=== PATIENT | female | born 1995 | race Caucasian/White ===

== ENCOUNTER 2018-11-05 10:31 | Emergency (ER) | payer SELFPAY ==
--- NOTE | 2018-11-05 11:47 | EKG ---
Test Date: 2018-11-05 Test Time: 11:23:06 [employer]: [place] MEASUREMENT RESULTS: Intervals: Rate: 60 [place]: 138 QRSD: 86 QT: 394 QTc: 394 [place]: P: 28 [place]: 138 QRS: 97 T: 77 INTERPRETIVE STATEMENTS: Normal sinus rhythm with sinus arrhythmia Rightward axis Borderline ECG No previous ECG available for comparison Electronically Signed On 11-05-18 11:46:47 CDT by Kendall Rondon
[2018-11-05 12:05] LABS: Absolute Lymphocytes (CBC) 2.9 K/uL (0.7-4.9); Absolute Monocytes 0.6 K/uL (0.1-1.3); Absolute Neutrophil 5.6 K/uL (1.8-8.0); Basophils % 0.4 % (0-1.3); Eosinophils % 0.9 % (0-4.4); Hematocrit 43.9 % (36.0-45.0); Lymphocytes % 31.3 % (15.3-44.8); MPV 10.4 fL (7.6-11.3); Monocytes % 6.2 % (3.3-12.3)
[2018-11-05 12:36] LABS: ALT/SGPT 15 U/L (12-78); AST/SGOT 11 U/L (15-37); Albumin 4.3 g/dL (3.4-5.0); Alkaline Phosphatase 42 U/L (45-117); BUN Blood Urea Nitrogen 15 mg/dL (7-18); Bicarbonate 26 mmol/L (21-32); Bilirubin Direct < 0.1 mg/dL (0-0.2); Bilirubin Total 0.2 mg/dL (0.2-1.0); Glucose Level 86 mg/dL (74-106); Potassium 3.9 mmol/L (3.5-5.1); Protein, Total 8.4 g/dL (6.4-8.2); Sodium Level 141 mmol/L (136-145)
[2018-11-05 13:07] LABS: Barbiturates NEGATIVE (NEGATIVE); Benzodiazepines NEGATIVE (NEGATIVE); Cocaine NEGATIVE (NEGATIVE); METHAMPHETAM NEGATIVE (NEGATIVE); Methadone NEGATIVE (NEGATIVE); Opiates NEGATIVE (NEGATIVE); Phencyclidine NEGATIVE (NEGATIVE); THC Cannibis POSITIVE (NEGATIVE)
[2018-11-05 13:26] LABS: Urine Blood NEGATIVE (NEG); Urine Glucose NEGATIVE (NEG); Urine Protein NEGATIVE (NEG); Urine Specific Gravity 1.025 (1.005-1.030)
--- NOTE | 2018-11-06 16:36 | ER ---
Nurse's Notes [facility] Name: Nancy Crowell Age: 23 yrs Sex: Female : 1995 Arrival Date: 11/05/2018 Time: 10:34 Bed 16 Private MD: None, None Diagnosis: Suicidal ideations;Suicide attempt Presentation: 11/05 10:36 Presenting complaint: Patient states: "I took a bunch of pills on Sunday to try to aj1 kill myself, I'm severely depressed, I have anxiety." Patient's mother reports that she was threatening to kill herself earlier. Transition of care: patient was not received from another setting of care. Onset of symptoms was November 05, 2018. Risk Assessment: Do you want to hurt yourself or someone else? Patient reports desire/thoughts of hurting themselves or someone else. Provider notified. Initial Sepsis Screen: Does the patient meet any 2 criteria? No. Patient's initial sepsis screen is negative. Does the patient have a suspected source of infection? No. Patient's initial sepsis screen is negative. Care prior to arrival: None. 10:36 Method Of Arrival: Ambulatory aj 10:36 Acuity: MELO 2 aj1 Triage Assessment: 10:38 General: Appears in no apparent distress. uncomfortable, Behavior is calm, cooperative, aj1 appropriate for age. Pain: Denies pain. Neuro: Level of Consciousness is awake, alert, obeys commands. Cardiovascular: Patient's skin is warm and dry. Respiratory: Airway is patent Respiratory effort is even, unlabored, Respiratory pattern is regular, symmetrical. 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 - Social history:: Smoking status: Patient/guardian denies using tobacco, Patient uses street drugs, marijuana. - Ebola Screening: : Patient denies travel to an Ebola-affected area in the 21 days before illness onset. Screenin:00 Abuse screen: Denies threats or abuse. Nutritional screening: No deficits noted. rb1 Tuberculosis screening: No symptoms or risk factors identified. Fall Risk None identified. Assessment: 10:40 Reassessment: Dr. Duron is currently in the room speaking with the pt. and her mother. rb1 11:00 General: Appears comfortable, Behavior is anxious, Pt. told her mother that she didn't rb1 want to be here.. 11:00 Neuro: Level of Consciousness is awake, alert, obeys commands, Oriented to person, rb1 place, time, situation. Cardiovascular: Capillary refill < 3 seconds is brisk in bilateral fingers. Respiratory: Airway is patent Respiratory effort is even, unlabored, Respiratory pattern is regular, symmetrical. Derm: Skin is pink, warm \\T\\ dry. Musculoskeletal: Range of motion: intact in all extremities. 11:00 General: Pt. denies having a plan to harm herself now. Pt. stated, "I'm not going to do rb1 anything while I'm here. I have just been dealing with stuff clear back to my childhood.". Pain: Denies pain. GI: No signs and/or symptoms were reported involving the gastrointestinal system. : No signs and/or symptoms were reported regarding the genitourinary system. Derm: Healing superficial cut noted to the left wrist. 12:00 Reassessment: Patient appears in no apparent distress at this time. No changes from rb1 previously documented assessment. Mother at bedside. 13:00 Reassessment: Patient appears in no apparent distress at this time. Patient and/or rb1 family updated on plan of care and expected duration. Pain level reassessed. Patient is alert, oriented x 3, equal unlabored respirations, skin warm/dry/pink. Patient denies pain at this time. 14:00 Reassessment: Patient appears in no apparent distress at this time. No changes from rb1 previously documented assessment. Pt. was asked if she would voluntarily be transferred to a mental health facility and she agreed to be transferred. 15:00 Reassessment: Patient appears in no apparent distress at this time. Patient and/or rb1 family updated on plan of care and expected duration. Pain level reassessed. Patient is alert, oriented x 3, equal unlabored respirations, skin warm/dry/pink. Mother remains at bedside. Patient denies pain at this time. 16:00 Reassessment: Patient appears in no apparent distress at this time. No changes from rb1 previously documented assessment. 16:17 Reassessment: [facility] at bedside speaking with the pt. rb1 17:00 Reassessment: Patient appears in no apparent distress at this time. Patient and/or rb1 family updated on plan of care and expected duration. Pain level reassessed. Patient is alert, oriented x 3, equal unlabored respirations, skin warm/dry/pink. Patient denies pain at this time. 18:00 Reassessment: Patient appears in no apparent distress at this time. No changes from rb1 previously documented assessment. 18:20 Reassessment: Did a nurse to nurse with Elzbieta from [facility]. Information rb1 from the [facility] was given. All questions asked and answered. Elzbieta will call back if she has further questions. 19:20 General: Appears comfortable, Behavior is calm, cooperative, appropriate for age. Pain: ea Denies pain. Neuro: Level of Consciousness is awake, alert, obeys commands, Oriented to person, place, time, situation. Cardiovascular: Patient's skin is warm and dry. Respiratory: Airway is patent Respiratory effort is even, unlabored, Respiratory pattern is regular, symmetrical. Derm: Skin is pink, warm \\T\\ dry. 11/06 07:00 Reassessment: Pt's care will be continued by me at this time. . aa5 07:15 Reassessment: Pt resting in bed with eyes closed, easy to awaken to verbal stimuli. Pt aa5 notified of POC of attempts being made to transfer to psych facility and notified of long wait time. Pt verbalized understanding. Pt reports suicidal ideation, pt states "I took some Xanax that I got from a dealer trying to kill myself on Sunday". . Pain: Denies pain. Neuro: Level of Consciousness is awake, alert, obeys commands, Oriented to person, place, time, situation. Cardiovascular: Heart tones S1 S2 present Rhythm is regular. Respiratory: Airway is patent Respiratory effort is even, unlabored, Respiratory pattern is regular, symmetrical. GI: Abdomen is non-distended, Bowel sounds present X 4 quads. Abd is soft and non tender X 4 quads. : No signs and/or symptoms were reported regarding the genitourinary system. EENT: No signs and/or symptoms were reported regarding the EENT system. Derm: Skin is pink, warm \\T\\ dry. Musculoskeletal: Range of motion: intact in all extremities. 08:00 Reassessment: Pt resting in bed with eyes closed, respirations even and unlabored, skin aa5 is pink/warm/dry. . 09:00 Reassessment: Pt sitting up in bed eating breakfast, pt tolerating well. . aa5 10:00 Reassessment: Resting in bed with eyes closed, respirations even and unlabored, skin is aa5 pink/warm/dry. 10:30 Reassessment: Pt ambulated to restroom, pt voided x 1 . 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 . aa5 12:00 Reassessment: Pt sitting up in bed eating, pt tolerating well. . aa5 13:00 Reassessment: Pt resting in bed with eyes closed, respirations even and unlabored, skin aa5 is pink/warm/dry. 14:15 Reassessment: Patient is alert, oriented x 3, equal unlabored respirations, skin aa5 warm/dry/pink. Pt sitting up in bed holding a conversation with mother . 15:15 Reassessment: Pt resting in bed with eyes closed, respirations even and unlabored, skin aa5 is pink/warm/dry. 16:30 Reassessment: Patient is alert, oriented x 3, equal unlabored respirations, skin aa5 warm/dry/pink. Report given to nurse (Laure) at [facility], phone number for doctor report obtained and Dr. Long notified. Pt notified of wait time, pt verbalized understanding. . 17:25 Reassessment: Patient is alert, oriented x 3, equal unlabored respirations, skin aa5 warm/dry/pink. Psych: 11/05 11:00 Subjective: Patient's mood is sad, Delusions are denied, Hallucinations are denied rb1 Having thoughts of suicide. Denies suicidal plan. Objective: Patient is cooperative, using poor eye contact, Speech is normal, Affect is flat, Patient has mutilated themselves by healing superficial cut noted to the left wrist. Interventions: Removed personal items and placed in bag. Patient placed in hospital gown. Searched person for dangerous items. Belonging list filled out. Suicide Risk Assessment: Sad Person Scale: Sex of patient: Female: Score 0 points. Age of patient: Score 1 point if patient 15-34. Depression: Score 1 point if signs of depression are present. Previous Attempt: Score 1 point if patient has previously attempted suicide. Substance Abuse: Score 1 point if patient abuses alcohol or drugs. Rational Thinking: Score 1 point if patient is lacking rational thinking. Social Support: Score 0 if social support is present/available. Organized Plan: Score 0 if patient did not have an organized plan in place. Relationship: Score 0 point if patient has a spouse or domestic partner. Chronic Sickness: Score 0 point if patient does not have a chronic illness, debilitating, or severe disorder. TOTAL POINTS: If total points are 5-6, proposed clinical action is to strongly consider hospitalization, depending upon confidence in the follow-up arrangement. Implement suicide precautions. Suicide Risk Assessment: Sad Person Scale:. Safety Checks: Personal items have been removed. Door is open. Visitors are present. Took Xanax on Sunday to tried to commit suicide. 11/06 07:15 Commitment: Patient will be a voluntary commitment. aa5 Vital Signs: 11/05 10:38 BP 130 / 89; Pulse 79; Resp 18; Temp 98.0(TE); Pulse Ox 100% on R/A; Weight 53.52 kg aj1 (R); Height 5 ft. 5 in. (165.10 cm) (R); Pain 0/10; 15:00 BP 144 / 84; Pulse 72; Resp 18; Temp 98.5; Pulse Ox 99% on R/A; kj1 18:46 BP 132 / 69; Pulse 72; Resp 18; Temp 98.5; Pulse Ox 100% on R/A; kj1 22:15 BP 124 / 72; Pulse 77; Resp 16; Pulse Ox 100% on R/A; mt 11/06 03:39 BP 122 / 70; Pulse 76; Resp 18; Pulse Ox 99% on R/A; mw2 07:13 BP 112 / 71; Pulse 83; Resp 16 S; Temp 98.6(O); Pulse Ox 100% on R/A; Pain 0/10; aa5 10:42 BP 116 / 75; Pulse 66; Resp 16; Pulse Ox 100% ; ms 15:00 BP 109 / 71; Pulse 70; Resp 17; Pulse Ox 100% on R/A; jb1 11/05 10:38 Body Mass Index 19.64 (53.52 kg, 165.10 cm) aj1 ED Course: 11/05 10:34 Patient arrived in ED. mr 10:34 None, None is Private Physician. mr 10:38 Berry Duron MD is Attending Physician. ps1 10:38 Triage completed. aj1 10:38 Arm band placed on Patient placed in an exam room. aj1 10:43 Nhi Winston, RN is Primary Nurse. rb1 11:00 Safety checks: Items removed: yes. Door open/sign placed on door: yes. Family/friend em1 present: yes. Family/friends encouraged to stay with patient. Sitter present: Yes. 11:00 Patient has correct armband on for positive identification. Bed in low position. Mother rb1 at bedside. 11:15 Safety checks: Items removed: yes. Door open/sign placed on door: yes. Family/friend em1 present: yes. Family/friends encouraged to stay with patient. Sitter present: Yes. 11:23 EKG done, by office technology professor. reviewed by Berry Duron MD. at1 11:30 Safety checks: Items removed: yes. Door open/sign placed on door: yes. Family/friend em1 present: yes. Family/friends encouraged to stay with patient. Sitter present: Yes. 11:40 Inserted saline lock: 22 gauge in left antecubital area, using aseptic technique. Blood rb1 collected. 11:45 Safety checks: Items removed: yes. Door open/sign placed on door: yes. Family/friend em1 present: yes. Family/friends encouraged to stay with patient. Sitter present: Yes. 12:00 Safety checks: Items removed: yes. Door open/sign placed on door: yes. Family/friend em1 present: yes. Family/friends encouraged to stay with patient. Sitter present: Yes. 12:15 Safety checks: Items removed: yes. Door open/sign placed on door: yes. Family/friend em1 present: yes. Family/friends encouraged to stay with patient. Sitter present: Yes. 12:48 Safety checks: Items removed: yes. Door open/sign placed on door: yes. Family/friend kj1 present: yes. Family/friends encouraged to stay with patient. Sitter present: Yes. 12:50 Urine Drug Screen Sent. kj1 13:00 Safety checks: Items removed: yes. Door open/sign placed on door: yes. Family/friend kj1 present: yes. Family/friends encouraged to stay with patient. Sitter present: Yes. 13:15 Safety checks: Items removed: yes. Door open/sign placed on door: yes. Family/friend kj1 present: yes. Family/friends encouraged to stay with patient. Sitter present: Yes. 13:30 Safety checks: Items removed: yes. Door open/sign placed on door: yes. Family/friend kj1 present: yes. Family/friends encouraged to stay with patient. Sitter present: Yes. 13:45 Safety checks: Items removed: yes. Door open/sign placed on door: yes. Family/friend kj1 present: yes. Family/friends encouraged to stay with patient. Sitter present: Yes. 14:00 Safety checks: Items removed: yes. Door open/sign placed on door: yes. Family/friend kj1 present: yes. Family/friends encouraged to stay with patient. Sitter present: Yes. 14:15 Safety checks: Items removed: yes. Door open/sign placed on door: yes. Family/friend kj1 present: yes. Family/friends encouraged to stay with patient. Sitter present: Yes. 14:30 Safety checks: Items removed: yes. Door open/sign placed on door: yes. Family/friend kj1 present: no. Sitter present: Yes. 14:44 Safety checks: Items removed: yes. Door open/sign placed on door: yes. Family/friend kj1 present: yes. Family/friends encouraged to stay with patient. Sitter present: Yes. 15:00 Safety checks: Items removed: yes. Door open/sign placed on door: yes. Family/friend kj1 present: yes. Family/friends encouraged to stay with patient. Sitter present: Yes. 15:15 Safety checks: Items removed: yes. Door open/sign placed on door: yes. Family/friend kj1 present: yes. Family/friends encouraged to stay with patient. Sitter present: Yes. 15:30 Safety checks: Items removed: yes. Door open/sign placed on door: yes. Family/friend kj1 present: yes. Family/friends encouraged to stay with patient. Sitter present: Yes. 15:45 Safety checks: Items removed: yes. Door open/sign placed on door: yes. Family/friend kj1 present: yes. Family/friends encouraged to stay with patient. Sitter present: Yes. 16:00 Safety checks: Items removed: yes. Door open/sign placed on door: yes. Family/friend kj1 present: yes. Family/friends encouraged to stay with patient. Sitter present: Yes. 16:15 Safety Checks: Personal items have been removed. The door is open or patient has been rb1 placed in a hallway bed/chair. A family member and/or friend is present and encouraged to stay. Sitter present at this time. 16:19 Safety checks: Items removed: yes. Door open/sign placed on door: yes. Family/friend kj1 present: yes. Family/friends encouraged to stay with patient. Other: PT SPEAKING WITH [facility]. 16:30 Safety checks: Items removed: yes. Door open/sign placed on door: yes. Family/friend kj1 present: yes. Family/friends encouraged to stay with patient. Sitter present: Yes. 16:42 Safety checks: Items removed: yes. Door open/sign placed on door: yes. Family/friend kj1 present: yes. Family/friends encouraged to stay with patient. Sitter present: Yes. 17:00 Safety checks: Items removed: yes. Door open/sign placed on door: yes. Family/friend kj1 present: yes. Family/friends encouraged to stay with patient. Sitter present: Yes. 17:15 Safety checks: Items removed: yes. Door open/sign placed on door: yes. Family/friend kj1 present: yes. Family/friends encouraged to stay with patient. Sitter present: Yes. 17:30 Safety checks: Items removed: yes. Door open/sign placed on door: yes. Family/friend kj1 present: yes. Family/friends encouraged to stay with patient. Sitter present: Yes. 17:44 Safety checks: Items removed: yes. Door open/sign placed on door: yes. Family/friend kj1 present: no. Sitter present: Yes. 18:00 Safety checks: Items removed: yes. Door open/sign placed on door: yes. Family/friend kj1 present: no. Sitter present: Yes. 18:02 attempted transfer to [facility], was told by [facility] that they do have a bed, bd faxed the chart, exculsionary and signed consent for voluntary admission form. 18:06 faxed chart to [facility], [facility], [facility], [facility], [facility], [facility] and [facility]. 18:15 Safety checks: Items removed: yes. Door open/sign placed on door: yes. Family/friend kj1 present: no. Sitter present: Yes. 18:30 Safety checks: Items removed: yes. Door open/sign placed on door: yes. Family/friend kj1 present: no. Sitter present: Yes. 18:45 Safety checks: Items removed: yes. Door open/sign placed on door: yes. Family/friend kj1 present: no. Sitter present: Yes. 19:00 Report given to TACOS Vallejo. rb1 19:15 Safety checks: Items removed: yes. Door open/sign placed on door: yes. Family/friend mt present: yes. Sitter present: Yes. 19:30 Safety checks: Items removed: yes. Door open/sign placed on door: yes. Family/friend mt present: yes. Sitter present: Yes. 19:45 Safety checks: Items removed: yes. Door open/sign placed on door: yes. Family/friend mt present: yes. Sitter present: Yes. 20:00 Safety checks: Items removed: yes. Door open/sign placed on door: yes. Family/friend mt present: yes. Sitter present: Yes. 20:15 Safety checks: Items removed: yes. Door open/sign placed on door: yes. Family/friend mt present: yes. Sitter present: Yes. 20:30 Safety checks: Items removed: yes. Door open/sign placed on door: yes. Family/friend mt present: yes. Sitter present: Yes. 20:45 Safety checks: Items removed: yes. Door open/sign placed on door: yes. Family/friend mt present: yes. Sitter present: Yes. 21:00 Safety checks: Items removed: yes. Door open/sign placed on door: yes. Family/friend mt present: yes. Sitter present: Yes. 21:15 Safety checks: Items removed: yes. Door open/sign placed on door: yes. Family/friend mt present: yes. Sitter present: Yes. 21:30 Safety checks: Items removed: yes. Door open/sign placed on door: yes. Family/friend mt present: yes. Sitter present: Yes. 21:45 Safety checks: Items removed: yes. Door open/sign placed on door: yes. Family/friend mt present: yes. Sitter present: Yes. 22:00 Safety checks: Items removed: yes. Door open/sign placed on door: yes. Family/friend mt present: yes. Sitter present: Yes. 22:15 Safety checks: Items removed: yes. Door open/sign placed on door: yes. Family/friend mt present: yes. Sitter present: Yes. 22:30 Safety checks: Items removed: yes. Door open/sign placed on door: yes. Family/friend mt present: yes. Sitter present: Yes. 22:45 Safety checks: Items removed: yes. Door open/sign placed on door: yes. Family/friend mt present: yes. Sitter present: Yes. 23:00 Safety checks: Items removed: yes. Door open/sign placed on door: yes. Family/friend mt present: yes. Sitter present: Yes. 23:15 Safety checks: Items removed: yes. Door open/sign placed on door: yes. Family/friend mt present: yes. Sitter present: Yes. 23:30 Safety checks: Items removed: yes. Door open/sign placed on door: yes. Family/friend mt present: yes. Sitter present: Yes. 23:45 Safety checks: Items removed: yes. Door open/sign placed on door: yes. Family/friend mt present: yes. Sitter present: Yes. 11/06 00:00 Safety checks: Items removed: yes. Door open/sign placed on door: yes. Family/friend mt present: yes. Sitter present: Yes. 00:15 Safety checks: Items removed: yes. Door open/sign placed on door: yes. Family/friend mt present: yes. Sitter present: Yes. 00:30 Safety checks: Items removed: yes. Door open/sign placed on door: yes. Family/friend mt present: yes. Sitter present: Yes. 00:45 Safety checks: Items removed: yes. Door open/sign placed on door: yes. Family/friend mt present: yes. Sitter present: Yes. 01:00 Safety checks: Items removed: yes. Door open/sign placed on door: yes. Family/friend mt present: yes. Sitter present: Yes. 01:15 Safety checks: Items removed: yes. Door open/sign placed on door: yes. Family/friend mw2 present: yes. Sitter present: Yes. 01:30 Safety checks: Items removed: yes. Door open/sign placed on door: yes. Family/friend mw2 present: yes. Sitter present: Yes. 01:45 Safety checks: Items removed: yes. Door open/sign placed on door: yes. Family/friend mw2 present: yes. Sitter present: Yes. 02:00 Safety checks: Items removed: yes. Door open/sign placed on door: yes. Family/friend mw2 present: yes. Sitter present: Yes. 02:15 Safety checks: Items removed: yes. Door open/sign placed on door: yes. Family/friend mw2 present: yes. Sitter present: Yes. 02:30 Safety checks: Items removed: yes. Door open/sign placed on door: yes. Family/friend mw2 present: yes. Sitter present: Yes. 02:45 Safety checks: Items removed: yes. Door open/sign placed on door: yes. Family/friend mw2 present: yes. Sitter present: Yes. 03:00 Safety checks: Items removed: yes. Door open/sign placed on door: yes. Family/friend mw2 present: yes. Sitter present: Yes. 03:15 Safety checks: Items removed: yes. Door open/sign placed on door: yes. Family/friend mw2 present: yes. Sitter present: Yes. 03:30 Safety checks: Items removed: yes. Door open/sign placed on door: yes. Family/friend mw2 present: yes. Sitter present: Yes. 03:45 Safety checks: Items removed: yes. Door open/sign placed on door: yes. Family/friend mw2 present: yes. Sitter present: Yes. 04:00 Safety checks: Items removed: yes. Door open/sign placed on door: yes. Family/friend mw2 present: yes. Sitter present: Yes. 04:15 Safety checks: Items removed: yes. Door open/sign placed on door: yes. Family/friend mw2 present: yes. Sitter present: Yes. 04:30 Safety checks: Items removed: yes. Door open/sign placed on door: yes. Family/friend mw2 present: yes. Sitter present: Yes. 04:45 Safety checks: Items removed: yes. Door open/sign placed on door: yes. Family/friend mw2 present: yes. Sitter present: Yes. 05:00 Safety checks: Items removed: yes. Door open/sign placed on door: yes. Family/friend mw2 present: Sitter present: Yes. 05:15 Safety checks: Items removed: yes. Door open/sign placed on door: yes. Family/friend mw2 present: yes. Sitter present: Yes. 05:30 Safety checks: Items removed: yes. Door open/sign placed on door: yes. Family/friend mw2 present: yes. Sitter present: Yes. 05:45 Safety checks: Items removed: yes. Door open/sign placed on door: yes. Family/friend mw2 present: yes. Sitter present: Yes. 06:00 Safety checks: Items removed: yes. Door open/sign placed on door: yes. Family/friend mw2 present: yes. Sitter present: Yes. 06:15 Safety checks: Items removed: yes. Door open/sign placed on door: yes. Family/friend mw2 present: yes. Sitter present: Yes. 06:30 Safety checks: Items removed: yes. Door open/sign placed on door: yes. Family/friend mw2 present: yes. Sitter present: Yes. 06:45 Safety checks: Items removed: yes. Door open/sign placed on door: yes. Family/friend mw2 present: yes. Sitter present: Yes. 07:00 Safety checks: Items removed: yes. Door open/sign placed on door: yes. Family/friend jb1 present: no. Sitter present: Yes. 07:15 Safety checks: Items removed: yes. Door open/sign placed on door: yes. Family/friend jb1 present: no. Sitter present: Yes. 07:15 No provider procedures requiring assistance completed. aa5 07:28 Safety checks: Items removed: yes. Door open/sign placed on door: yes. Family/friend jb1 present: no. Sitter present: Yes. 07:45 Safety checks: Items removed: yes. Door open/sign placed on door: yes. Family/friend jb1 present: no. Sitter present: Yes. 08:00 Safety checks: Items removed: yes. Door open/sign placed on door: yes. Family/friend jb1 present: yes. Family/friends encouraged to stay with patient. Sitter present: Yes. 08:15 Safety checks: Items removed: yes. Door open/sign placed on door: yes. Family/friend jb1 present: yes. Family/friends encouraged to stay with patient. Sitter present: Yes. 08:30 Safety checks: Items removed: yes. Door open/sign placed on door: yes. Family/friend jb1 present: yes. Family/friends encouraged to stay with patient. Sitter present: Yes. 08:44 Safety checks: Items removed: yes. Door open/sign placed on door: yes. Family/friend jb1 present: yes. Family/friends encouraged to stay with patient. Sitter present: Yes. 09:00 Safety checks: Items removed: yes. Door open/sign placed on door: yes. Family/friend jb1 present: yes. Family/friends encouraged to stay with patient. Sitter present: Yes. 09:07 pt was denied by [facility] due to pt having nursing home order. bd 09:15 Safety checks: Items removed: yes. Door open/sign placed on door: yes. Family/friend ms present: yes. Family/friends encouraged to stay with patient. Sitter present: Yes. 09:16 talked with Laure at [facility], was told that there are no beds at this time, bd pt is on waiting list. possible discharges today. 09:30 Safety checks: Items removed: yes. Door open/sign placed on door: yes. Family/friend ms present: yes. Family/friends encouraged to stay with patient. Sitter present: Yes. 09:45 Safety checks: Items removed: yes. Door open/sign placed on door: yes. Family/friend ms present: yes. Family/friends encouraged to stay with patient. Sitter present: Yes. 10:00 Safety checks: Items removed: yes. Door open/sign placed on door: yes. Family/friend ms present: yes. Family/friends encouraged to stay with patient. Sitter present: Yes. 10:15 Safety checks: Items removed: yes. Door open/sign placed on door: yes. Family/friend ms present: yes. Family/friends encouraged to stay with patient. Sitter present: Yes. 10:30 Safety checks: Items removed: yes. Door open/sign placed on door: yes. Family/friend ms present: yes. Family/friends encouraged to stay with patient. Sitter present: Yes. 10:45 Safety checks: Items removed: yes. Door open/sign placed on door: yes. Family/friend ms present: yes. Family/friends encouraged to stay with patient. Sitter present: Yes. 11:00 Safety checks: Items removed: yes. Door open/sign placed on door: yes. Family/friend ms present: no. Sitter present: Yes. 11:15 Safety checks: Items removed: yes. Door open/sign placed on door: yes. Family/friend ms present: no. Sitter present: Yes. 11:30 Safety checks: Items removed: yes. Door open/sign placed on door: yes. Family/friend ms present: no. Sitter present: Yes. 11:45 Safety checks: Items removed: yes. Door open/sign placed on door: yes. Family/friend ms present: no. Sitter present:. 12:00 Safety checks: Items removed: yes. Door open/sign placed on door: yes. Family/friend ms present: yes. Family/friends encouraged to stay with patient. Other: Patients mother at bedside. pt mother brought pt lunch Sitter present: Yes. 12:15 Safety checks: Items removed: yes. Door open/sign placed on door: yes. Family/friend ms present: yes. Family/friends encouraged to stay with patient. Sitter present: Yes. 12:30 Safety checks: Items removed: yes. Door open/sign placed on door: yes. Family/friend ms present: yes. Family/friends encouraged to stay with patient. Sitter present: Yes. 12:45 Safety checks: Items removed: yes. Door open/sign placed on door: yes. Family/friend ms present: yes. Family/friends encouraged to stay with patient. Sitter present: Yes. 13:00 Safety checks: Items removed: yes. Door open/sign placed on door: yes. Family/friend ms present: yes. Family/friends encouraged to stay with patient. Sitter present: Yes. 13:15 Safety checks: Items removed: yes. Door open/sign placed on door: yes. Family/friend ms present: yes. Family/friends encouraged to stay with patient. Sitter present: Yes. 13:30 Safety checks: Items removed: yes. Door open/sign placed on door: yes. Family/friend ms present: yes. Family/friends encouraged to stay with patient. Sitter present: Yes. 13:45 Safety checks: Items removed: yes. Door open/sign placed on door: yes. Family/friend ms present: yes. Sitter present: Yes. 14:00 Safety checks: Items removed: yes. Door open/sign placed on door: yes. Family/friend ms present: yes. Family/friends encouraged to stay with patient. Sitter present: Yes. 14:12 talked to rashad at [facility], still no beds available. bd 14:15 Safety checks: Items removed: yes. Door open/sign placed on door: yes. Family/friend ms present: yes. Family/friends encouraged to stay with patient. Sitter present: Yes. 14:30 Safety checks: Items removed: yes. Door open/sign placed on door: yes. Family/friend ms present: yes. Family/friends encouraged to stay with patient. Sitter present: Yes. 14:54 talked to Laure with [facility], pt is on waiting list and waiting for [facility] bed to open up. 15:10 Safety checks: Items removed: yes. Door open/sign placed on door: yes. Family/friend jb1 present: no. Sitter present: Yes. 15:30 Safety checks: Items removed: yes. Door open/sign placed on door: yes. Family/friend jb1 present: no. Sitter present: Yes. 15:45 Safety checks: Items removed: yes. Door open/sign placed on door: yes. Family/friend jb1 present: no. Sitter present: Yes. 16:00 Safety checks: Items removed: yes. Door open/sign placed on door: yes. Family/friend jb1 present: no. Sitter present: Yes. 16:15 Safety checks: Items removed: yes. Door open/sign placed on door: yes. Family/friend jb1 present: no. Sitter present: Yes. 16:30 Safety checks: Items removed: yes. Door open/sign placed on door: yes. Family/friend jb1 present: yes. Family/friends encouraged to stay with patient. Sitter present: Yes. 16:30 IV discontinued, intact, bleeding controlled, No redness/swelling at site. Pressure aa5 dressing applied. 16:45 Safety checks: Items removed: yes. Door open/sign placed on door: yes. Family/friend jb1 present: yes. Family/friends encouraged to stay with patient. Sitter present: Yes. 17:00 Safety checks: Items removed: yes. Door open/sign placed on door: yes. Family/friend jb1 present: yes. Family/friends encouraged to stay with patient. Sitter present: Yes. 17:15 Safety Checks: Personal items have been removed. The door is open or patient has been aa5 placed in a hallway bed/chair. There are no family/friend visitors at this time Sitter present at this time. Administered Medications: No medications were administered Outcome: 16:34 ER care complete, transfer ordered by MD. rn 17:25 Transferred by ground EMS Transfer form completed. Note: to [facility], report given aa5 to [facility] 17:25 Condition: stable 17:25 Instructed on the need for transfer, Demonstrated understanding of instructions. 17:33 Patient left the ED. bd Signatures: Brandin Denis jb1 Betsey Schwab Angela, RN RN aj1 Antonella Lowery mr Tre, Jesus Jimenez ms, MD MD rn Martinez, Kalia em1 Alisa Fry RN RN aa5 Gerda Leon RN RN ss Veronica Diaz, restaurant hourly team member EKG Tat1 Nhi Winston, RN Emily Dhaliwal ny Genevieve Arteaga RN RN ea Singer, Phillip, MD MD [facility] Derek, [place] 2 Nathalia Robin kj1 Corrections: (The following items were deleted from the chart) 11/05 14:18 12:00 Reassessment: Patient appears in no apparent distress at this time. No changes ss from previously documented assessment. Mother at bedside. ss 14:18 13:00 Reassessment: Patient appears in no apparent distress at this time. Patient ss and/or family updated on plan of care and expected duration. Pain level reassessed. Patient is alert, oriented x 3, equal unlabored respirations, skin warm/dry/pink. Patient denies pain at this time. ss 14:18 14:00 Reassessment: Patient appears in no apparent distress at this time. No changes ss from previously documented assessment. Pt. was asked if she would voluntarily be transferred and she agreed. 14:37 13:29 Safety checks: Items removed: yes. Door open/sign placed on door: yes. kj1 Family/friend present: yes. Family/friends encouraged to stay with patient. Sitter present: Yes. kj1 14:37 14:16 Safety checks: Items removed: yes. Door open/sign placed on door: yes. kj1 Family/friend present: yes. Family/friends encouraged to stay with patient. Sitter present: Yes. kj1 15:28 15:13 Safety checks: Items removed: yes. Door open/sign placed on door: yes. kj1 Family/friend present: yes. Family/friends encouraged to stay with patient. Sitter present: Yes. kj1 11/06 08:00 11/05 10:38 Home Meds: Xanax Oral; aj1 aa5 11/06 15:38 07:00 Commitment: Patient will be a voluntary commitment. aa5 aa5 16:50 16:30 Reassessment: Patient is alert, oriented x 3, equal unlabored respirations, skin aa5 warm/dry/pink. Report given to nurse at [facility], phone number for doctor report obtained and Dr. Long notified. Pt notified of wait time, pt verbalized understanding. . aa5
--- NOTE | 2018-11-06 16:37 | EDPHYS ---
Physician Documentation [facility] Name: Nancy Crowell Age: 23 yrs Sex: Female : 1995 Arrival Date: 11/05/2018 Time: 10:34 Bed 16 Private MD: None, None ED Physician Berry Duron HPI: 11/05 13:47 This 23 yrs old Female presents to ER via Ambulatory with complaints of ps1 Depression and suicide attempt. 13:47 patient has a history of anxiety and depression and was previously seen and evaluated ps1 for the same in April of last year. She was started on Celexa and stopped taking the medication on her own. Started self medicating with MJ. States that she is having problems with the father of her two young children as well as financial problems and in school. She attempted suicide by overdose 2 days ago with Xanax. She then attempted to jump out of a moving vehicle with intent to kill herself. She attests to suicidal thoughts at this time. . 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 - Social history:: Smoking status: Patient/guardian denies using tobacco, Patient uses street drugs, marijuana. - Ebola Screening: : Patient denies travel to an Ebola-affected area in the 21 days before illness onset. ROS: 13:47 Constitutional: Negative for fever, chills, and weight loss, Eyes: Negative for injury, ps1 pain, redness, and discharge, ENT: Negative for injury, pain, and discharge, Cardiovascular: Negative for chest pain, palpitations, and edema, Respiratory: Negative for shortness of breath, cough, wheezing, and pleuritic chest pain, Abdomen/GI: Negative for abdominal pain, nausea, vomiting, diarrhea, and constipation, Skin: Negative for injury, rash, and discoloration, Neuro: Negative for headache, weakness, numbness, tingling, and seizure. 13:47 Psych: Positive for anxiety, depression, suicide gesture, suicidal ideation. Exam: 13:47 Constitutional: This is a well developed, well nourished patient who is awake, alert, ps1 and in no acute distress. Head/Face: Normocephalic, atraumatic. Eyes: Pupils equal round and reactive to light, extra-ocular motions intact. Lids and lashes normal. Conjunctiva and sclera are non-icteric and not injected. ENT: Nares patent. No nasal discharge, no septal abnormalities noted. Tympanic membranes are normal and external auditory canals are clear. Oropharynx with no redness, swelling, or masses, exudates, or evidence of obstruction, uvula midline. Mucous membranes moist. Chest/axilla: Normal chest wall appearance and motion. Nontender with no deformity. No lesions are appreciated. Cardiovascular: Regular rate and rhythm. No gallops, murmurs, or rubs. Normal PMI, no JVD. No pulse deficits. Respiratory: Lungs have equal breath sounds bilaterally, clear to auscultation and percussion. No rales, rhonchi or wheezes noted. No increased work of breathing, no retractions or nasal flaring. Abdomen/GI: Soft, non-tender, with normal bowel sounds. No distension or tympany. No guarding or rebound. No evidence of tenderness throughout. MS/ Extremity: Pulses equal, no cyanosis. Neurovascular intact. Full, normal range of motion. Neuro: Awake and alert, GCS 15, oriented to person, place, time, and situation. Cranial nerves II-XII grossly intact. Sensory grossly intact. Psych: Awake, alert, with orientation to person, place and time. Behavior, mood, and affect are within normal limits. Vital Signs: 10:38 BP 130 / 89; Pulse 79; Resp 18; Temp 98.0(TE); Pulse Ox 100% on R/A; Weight 53.52 kg aj1 (R); Height 5 ft. 5 in. (165.10 cm) (R); Pain 0/10; 15:00 BP 144 / 84; Pulse 72; Resp 18; Temp 98.5; Pulse Ox 99% on R/A; kj1 18:46 BP 132 / 69; Pulse 72; Resp 18; Temp 98.5; Pulse Ox 100% on R/A; kj1 22:15 BP 124 / 72; Pulse 77; Resp 16; Pulse Ox 100% on R/A; mt 0515 03:39 BP 122 / 70; Pulse 76; Resp 18; Pulse Ox 99% on R/A; mw2 07:13 BP 112 / 71; Pulse 83; Resp 16 S; Temp 98.6(O); Pulse Ox 100% on R/A; Pain 0/10; aa5 10:42 BP 116 / 75; Pulse 66; Resp 16; Pulse Ox 100% ; ms 15:00 BP 109 / 71; Pulse 70; Resp 17; Pulse Ox 100% on R/A; jb1 11/05 10:38 Body Mass Index 19.64 (53.52 kg, 165.10 cm) aj1 MDM: 11/05 11:34 Patient medically screened. ps1 11/06 14:33 ED course: Pt calm, resting, still waiting for transfer, states fine right now but rn feels like would have same thoughts if discharged and is concerned. Is voluntary and wants help. . 16:32 Differential diagnosis: depression, suicidal ideation. Data reviewed: vital signs, rn nurses notes, lab test result(s), EKG, and as a result, I will admit patient. Counseling: I had a detailed discussion with the patient and/or guardian regarding: the historical points, exam findings, and any diagnostic results supporting the discharge/admit diagnosis, lab results, the need to transfer to another facility, [facility] does not immediately have the required specialist. Response to treatment: the patient's symptoms have mildly improved after treatment. ED course: Accepted for transfer to [facility] for suicidal ideation. 11/05 11:05 Order name: Acetaminophen ps1 11/05 11:05 Order name: Basic Metabolic Panel rust 11/05 11:05 Order name: CBC with Diff; Complete Time: 12:13 ps1 11/05 11:05 Order name: ETOH Level; Complete Time: 13:41 rust 11/05 11:05 Order name: Hepatic Function; Complete Time: 12:56 ps1 11/05 11:05 Order name: Salicylate; Complete Time: 12:56 rust 11/05 11:05 Order name: Urine Drug Screen; Complete Time: 13:41 ps1 11/05 11:05 Order name: EKG; Complete Time: 11:06 ps1 11/05 11:06 Order name: Acetaminophen Level; Complete Time: 12:56 EDMS 11/05 11:06 Order name: Basic Metabolic Panel; Complete Time: 12:56 EDMS 11/05 13:11 Order name: Urine Dipstick--Ancillary (enter results); Complete Time: 13:41 bd 11/05 13:11 Order name: Urine --Ancillary (enter results); Complete Time: 13:41 bd 11/05 14:25 Order name: Diet Finger Food; Complete Time: 14:26 kj1 11/06 06:57 Order name: Diet Finger Food; Complete Time: 06:58 ea 11/05 11:05 Order name: Urine Test (obtain specimen); Complete Time: 12:50 ps1 11/05 11:05 Order name: EKG - Nurse/Tech; Complete Time: 11:48 ps1 11/05 11:05 Order name: IV Saline Lock; Complete Time: 11:48 ps1 11/05 11:05 Order name: Labs collected and sent; Complete Time: 11:48 ps1 11/05 11:05 Order name: Urine Dipstick-Ancillary (obtain specimen); Complete Time: 13:12 ps1 11/06 10:34 Order name: Diet Finger Food; Complete Time: 10:37 iw Administered Medications: No medications were administered Disposition: 11/06/18 16:34 Transfer ordered to Other Acute Care Facility. Diagnosis are Suicidal ideations, Suicide attempt. - Reason for transfer: Higher level of care. - Accepting physician is Dr. Garner. - Condition is Stable. - Problem is an ongoing problem. - Symptoms are unchanged. Signatures: Dispatcher [employer] EDMS RupeshBetsey garcía Heidi Lee RN RN aj1 Jesus Long MD MD rn Calderon, Audri, RN RN aa5 Berry Duron MD MD ps1 Corrections: (The following items were deleted from the chart) 08:00 11/05 10:38 Home Meds: Xanax Oral; aj1 aa5 11/06 17:33 16:34 11/06/2018 16:34 Transfer ordered to Other Acute Care Facility. Diagnosis is bd Suicidal ideations; Suicide attempt. Reason for transfer: Higher level of care. Accepting physician is Dr. Garner. Condition is Stable. Problem is an ongoing problem. Symptoms are unchanged. rn
== END 2018-11-06 17:33 ==
LOC: ER 10:31
DX: R45.851 Suicidal ideations (principal); F32.9 Major depressive disorder, single episode, unspecified
CPT/HCPCS: 36415; 80048; 80076; 80307; 80320; 80329; 81003; 81025; 85025; 93005; 99285